=== PATIENT | female | born 1970 | race Caucasian/White ===

== ENCOUNTER → 2016-10-07 | Outpatient (CLI) | payer OTHER ==
[~2016-10-07] MED LIST: ARIP2TAB3 PO; ATOR10TA88 PO; BUPR-79 PO; BUPR100T8 PO; CLON0.5T3 PO; CLON2TAB3 PO; CLOP1TAB15 PO; CPXI SQ; DOCU1TAB6 PO; EFF/375 PO; ERGO1CAP35 PO; FRCT/ PO; GLC/500 PO; HYDC25 PO; HYDR-3126 PO; HYDR25TA5 PO; LEVO100T7 PO; LEVO50TA6 PO; LINA1CAP PO; LINA1CAP2 PO; LISI-461 PO; MECL1TAB42 PO; MELO15TA4 PO; MELO7.5T5 PO; METH500T37 PO; METO-217 PO; METO25TA3 PO; NAPR1TAB9 PO; ONDA4TAB46 PO; PANT40TA PO; POLY1POW2 PO; PROM25TA9 PO; QUET5TAB PO; RANI300T2 PO; ROSU20TA PO; SOLI10TA2 PO; VENL150C56 PO; VITAMIN B12 SC; VRPSR180 PO; VTMD PO
[2016-10-07 13:23] LABS: CHOLESTEROL/HDL RATIO 5.3; FERRITIN 5.9 ng/ml (8.0-388.0); THYROID STIMULATING HORMONE 1.96 uIu/ml (0.300-4.500)
[2016-10-07 13:33] LABS: BASO % 0.5 %; BASO ABS # 0.02 K/uL (0-0.2); COMPLETE YES; EOS % 5.1 %; HEMATOCRIT 36.2 % (37-47); LYMPH % 39.5 %; MEAN CELL VOLUME 87.7 fL (80-100); MEAN CORPUSCULAR HEMOGLOBIN 28.8 pg (25-34); MEAN CORPUSCULAR HGB CONC 32.9 g/dl (32-36); NEUT % 47.9 %; PLATELET COUNT 437 K/uL (130-400); RED BLOOD COUNT 4.13 M/uL (4.2-5.4)
== END | disposition home or self-care (01) ==
LOC: C.LABBFT 08:36
PROVIDERS: ATTEND Internal Medicine
DX: E03.9 Hypothyroidism, unspecified (principal); D50.9 Iron deficiency anemia, unspecified

== ENCOUNTER → 2016-10-28 | Outpatient (CLI) | payer OTHER ==
[~2016-10-28] MED LIST changes: -LEVO50TA6 PO
== END | disposition home or self-care (01) ==
LOC: C.LAB 11:48
PROVIDERS: ATTEND Psychiatry & Neurology Psychiatry
DX: F33.41 Major depressive disorder, recurrent, in partial remission (principal)

== ENCOUNTER → 2016-10-28 | Day surgery (SDC) | payer OTHER ==
[2016-10-20 08:01] VITALS: Ht 157.5 cm; Wt 103.2 kg
[~2016-10-28] VITALS: Ht 157.5 cm; Wt 103.2 kg
[~2016-10-28] MED LIST changes: +LIDOCAINE HCL 2% 2 ML VIAL (20MG/ML) ONE; +PROPOFOL IV EMULSION 10 MG/ML 20 ML VIAL IV ONE; +SODIUM CHLORIDE 0.9% 500ML 500 ML IV ONE
--- NOTE | 2016-10-28 12:35 | Endo History and Physical ---
History & Physical Date of Service: Oct 28, 2016. Chief Complaint: History of colon ulceration Referring Physician: Dr. Baires History of Present Illness 45 yo CF who presents for colonoscopy secondary to history of colon ulcer. Past Surgical History Hx Cardiac Surgery: No Hx Internal Defibrillator: No Hx Pacemaker: No Hx Abdominal Surgery: Yes (TUBAL LIGATION) Hx of Implantable Prosthesis: No Hx Post-Op Nausea and Vomiting: No Hx Cancer Surgery: No Hx Thoracic Surgery: No Hx Orthopedic: No Hx Urinary Tract Surgery: No Family History Colon CA Social History Smoking Status: Never Smoker Hx Substance Use: Yes (SEE MED REC) Hx Alcohol Use: No Allergies Coded Allergies: Vilazodone (Verified Adverse Reaction, Intermediate, HALLUCINATIONS, ) Current Medications Reported Home Medications Medications Dose Route/Sig Max Daily Dose Days Date Category Dose Instructions [Vitamin B12] 1 Dose SC MONTHLY 10/20/16 Reported Lipitor (Atorvastatin Calcium) 10 Mg Tab 10 Mg PO HS 10/20/16 Reported Glucophage (Metformin Hcl) 500 Mg Tab 500 Mg PO HS 10/20/16 Reported Levothyroxine Sodium 100 Mcg Tab 1 Tab PO HS 90 10/20/16 Reported Seroquel (Quetiapine Fumarate) 50 Mg Tab 3 Tab PO HS 10/20/16 Reported Polyethylene Glycol 3350 (Polyethylene Glycol 3350 (Bulk) Unknown Strength Pow 17 Gm PO BID 30 05/23/16 Reported Linzess (Linaclotide) 290 Mcg Cap 1 Tab PO QAM 05/23/16 Reported Wellbutrin Sr (Bupropion HCl) 150 Mg Ertab 150 Mg PO QAM 04/08/16 Reported Wellbutrin Sr (Bupropion HCl) 100 Mg Ertab 3 Tab PO QAM 04/08/16 Reported Effexor Extended Rel (Venlafaxine Hcl) 150 Mg Cap 150 Mg PO HS 04/08/16 Reported Effexor (Venlafaxine Hcl) 37.5 Mg Tab 37.5 Mg PO HS 04/08/16 Reported Vesicare (Solifenacin) 10 Mg Tab 10 Mg PO HS 04/08/16 Reported Protonix (Pantoprazole) 40 Mg Tab 1 Tab PO QAM 04/08/16 Reported Zofran (Ondansetron HCl) 4 Mg Tab 4 Mg PO Q8H PRN 04/08/16 Reported Vitamin D Cap (Ergocalciferol) 50,000 Interunit Cap 50,000 Inter.unit PO WK 04/08/16 Reported Aleve (Naproxen) 220 Mg Tab 220 Mg PO DIRECTED PRN 03/13/16 Reported Docusate Sodium 100 Mg Tab 3 Tab PO QAM 03/13/16 Reported Robaxin (Methocarbamol) 500 Mg Tab 500 Mg PO TID 03/13/16 Reported Zantac (Ranitidine HCl) 300 Mg Tab 300 Mg PO HS 08/27/15 Reported Toprol-Xl (Metoprolol Succinate) 25 Mg Tabcr 25 Mg PO HS 08/27/15 Reported Meclizine Hcl 25 Mg Tab 1 Tab PO TID PRN 30 08/27/15 Reported Copaxone (Glatiramer Acetate) 20 Mg/1 Ml Inj 1 Dose SQ QAM 08/27/15 Reported Mobic (Meloxicam) 7.5 Mg Tab 7.5 Mg PO BID 08/25/13 Reported TAKE WITH FOOD Klonopin (Clonazepam) 2 Mg Tab 2 Mg PO HS 08/25/13 Reported Fioricet (Acetaminophen/Butalbital/Caffeine) 1 Ea Tab 1-2 Tab PO BID PRN 08/25/13 Reported TAKE 1 OR 2 TABLETS BID PRN HEADACHE, NO MORE THAN 2 DAYS PER WEEK. Zestril (Lisinopril) 10 Mg Tab 10 Mg PO QAM 08/25/13 Reported Klonopin (Clonazepam) 0.5 Mg Tab 0.5 Mg PO TID PRN 08/12/11 Reported Hctz * (Hydrochlorothiazide) 25 Mg Tab 25 Mg PO QAM 08/12/11 Reported Vital Signs Weight (Kilograms): 103.18 Height (Feet): 5 Height (Inches): 2 Physical Exam General Appearance: WD/WN, no apparent distress Respiratory/Chest: Auscultation: breath sounds normal Cardiovascular: Heart Auscultation: RRR Abdomen: Bowel Sounds: normal Inspection & Palpation: soft, non-distended, no tenderness, guarding & rebound Assessment and Plan Assessment: 45 yo CF who presents for colonoscopy secondary to history of colon ulcer. Plan: Proceed with colonoscopy.
[2016-10-28 12:36] VITALS: TEMP 37.4
--- NOTE | 2016-10-28 13:19 | Discharge Instructions ---
Endoscopy Patient Instructions Date / Procedure(s) Performed Oct 28, 2016. Colonoscopy Allergy Information Coded Allergies: Vilazodone (Verified Adverse Reaction, Intermediate, HALLUCINATIONS, ) Discharge Date / Findings Oct 28, 2016. Poor bowel prep Medication Instructions Stopped Medication(s): Last dose Metformin 2/5 OK to resume all medications today as prescribed. Reported Home Medications Medications Dose Route/Sig Max Daily Dose Days Date Category Dose Instructions [Vitamin B12] 1 Dose SC MONTHLY 10/20/16 Reported Lipitor (Atorvastatin Calcium) 10 Mg Tab 10 Mg PO HS 10/20/16 Reported Glucophage (Metformin Hcl) 500 Mg Tab 500 Mg PO HS 10/20/16 Reported Levothyroxine Sodium 100 Mcg Tab 1 Tab PO HS 90 10/20/16 Reported Seroquel (Quetiapine Fumarate) 50 Mg Tab 3 Tab PO HS 10/20/16 Reported Polyethylene Glycol 3350 (Polyethylene Glycol 3350 (Bulk) Unknown Strength Pow 17 Gm PO BID 30 05/23/16 Reported Linzess (Linaclotide) 290 Mcg Cap 1 Tab PO QAM 05/23/16 Reported Wellbutrin Sr (Bupropion HCl) 150 Mg Ertab 150 Mg PO QAM 04/08/16 Reported Wellbutrin Sr (Bupropion HCl) 100 Mg Ertab 3 Tab PO QAM 04/08/16 Reported Effexor Extended Rel (Venlafaxine Hcl) 150 Mg Cap 150 Mg PO HS 04/08/16 Reported Effexor (Venlafaxine Hcl) 37.5 Mg Tab 37.5 Mg PO HS 04/08/16 Reported Vesicare (Solifenacin) 10 Mg Tab 10 Mg PO HS 04/08/16 Reported Protonix (Pantoprazole) 40 Mg Tab 1 Tab PO QAM 04/08/16 Reported Zofran (Ondansetron HCl) 4 Mg Tab 4 Mg PO Q8H PRN 04/08/16 Reported Vitamin D Cap (Ergocalciferol) 50,000 Interunit Cap 50,000 Inter.unit PO WK 04/08/16 Reported Aleve (Naproxen) 220 Mg Tab 220 Mg PO DIRECTED PRN 03/13/16 Reported Docusate Sodium 100 Mg Tab 3 Tab PO QAM 03/13/16 Reported Robaxin (Methocarbamol) 500 Mg Tab 500 Mg PO TID 03/13/16 Reported Zantac (Ranitidine HCl) 300 Mg Tab 300 Mg PO HS 08/27/15 Reported Toprol-Xl (Metoprolol Succinate) 25 Mg Tabcr 25 Mg PO HS 08/27/15 Reported Meclizine Hcl 25 Mg Tab 1 Tab PO TID PRN 30 08/27/15 Reported Copaxone (Glatiramer Acetate) 20 Mg/1 Ml Inj 1 Dose SQ QAM 08/27/15 Reported Mobic (Meloxicam) 7.5 Mg Tab 7.5 Mg PO BID 08/25/13 Reported TAKE WITH FOOD Klonopin (Clonazepam) 2 Mg Tab 2 Mg PO HS 08/25/13 Reported Fioricet (Acetaminophen/Butalbital/Caffeine) 1 Ea Tab 1-2 Tab PO BID PRN 08/25/13 Reported TAKE 1 OR 2 TABLETS BID PRN HEADACHE, NO MORE THAN 2 DAYS PER WEEK. Zestril (Lisinopril) 10 Mg Tab 10 Mg PO QAM 08/25/13 Reported Klonopin (Clonazepam) 0.5 Mg Tab 0.5 Mg PO TID PRN 08/12/11 Reported Hctz * (Hydrochlorothiazide) 25 Mg Tab 25 Mg PO QAM 08/12/11 Reported Provider Instructions Activity Restrictions - No exercising or heavy lifting for 24 hours. - Do not drink alcohol the day of the procedure. - Do not drive a car or operate machinery until the day after the procedure. - Do not make any important decisions or sign important papers in 24 hours after the procedure. Following Day: - Return to full activity which may include returning to work/school. Diet Start your diet with liquids and light foods (jello, soup, juice, toast). Then eat your usual diet if not nauseated. Treatment For Common After Affects For mild abdominal pain, bloating, or excessive gas: - Rest - Eat lightly - Lie on right side Follow-Up Information Follow-up with Dr.Dennis Baires as scheduled Anesthesia Information What You Should Know You have had a procedure that required some medicine to reduce anxiety and discomfort. This treatment is called moderate sedation. After receiving the treatment, you may be sleepy, but you will be able to breathe on your own. The effects of the treatment may last for several hours. Follow these instructions along with Activity/Diet recommendations noted above: * Do NOT do anything where dizziness or clumsiness would be dangerous. * Rest quietly at home today, then you can be up and about tomorrow. * Have a responsible person stay with you the rest of today. * You may have had an I.V. today. If so, you may take the dressing off later today. Recommendations Call your doctor if: * Trouble breathing * Continuous vomiting for more than 24 hours * Temperature above 101 degrees * Severe abdominal pain or bloating * Pain not relieved by pain medicine ordered * There is increased drainage or redness from any incision * A large amount of rectal bleeding greater than 2-3 tablespoons. (If you had a polyp/s removed or have hemorrhoids, a small amount of blood - from the rectum is to be expected.) * You have any unanswered questions or concerns. IN THE EVENT OF A SERIOUS EMERGENCY, GO TO THE NEAREST EMERGENCY ROOM Your discharge instructions were prepared by provider Rene Padgett. Patient Instructions Signature Page Lucas Diaz Patient (or Guardian) Signature/Date: I have read and understand the instructions given to me by my caregivers. Caregiver/RN/Doctor Signature/Date: The above-named patient and/or guardian has received patient instructions on this date. + Original Patient Signature Page (only) stays with chart. Please make copy for patient.
--- NOTE | 2016-10-28 13:24 | GI REPORT ---
Procedure Date: 10/28/2016 12:55 PM Procedure: Colonoscopy Indications: Personal history of ulcer of colon Medicines: Monitored Anesthesia Care Complications: No immediate complications. Estimated Blood Loss: Estimated blood loss: none. Procedure: Pre-Anesthesia Assessment: - Prior to the procedure, a History and Physical was performed, and patient medications and allergies were reviewed. The patient's tolerance of previous anesthesia was also reviewed. The risks and benefits of the procedure and the sedation options and risks were discussed with the patient. All questions were answered, and informed consent was obtained. Prior Anticoagulants: The patient has taken no previous anticoagulant or antiplatelet agents. ASA Grade Assessment: III - A patient with severe systemic disease. After reviewing the risks and benefits, the patient was deemed in satisfactory condition to undergo the procedure. After I obtained informed consent, the scope was passed under direct vision. Throughout the procedure, the patient's blood pressure, pulse, and oxygen saturations were monitored continuously. The On-site loaner was introduced through the anus with the intention of advancing to the ileum. The scope was advanced to the ascending colon before the procedure was aborted. Medications were given. The colonoscopy was performed with moderate difficulty due to poor bowel prep with stool present. Successful completion of the procedure was aided by applying abdominal pressure and lavage. The patient tolerated the procedure well. The quality of the bowel preparation was poor. No anatomical landmarks were photographed. Findings: A large amount of semi-solid solid stool was found in the entire colon, precluding visualization. Lavage of the area was performed using a large amount of normal saline, resulting in incomplete clearance with continued poor visualization. Impression: - Preparation of the colon was poor. - Stool in the entire examined colon. - No specimens collected. Recommendation: - Resume previous diet. - Continue present medications. - Repeat colonoscopy in 3 months because the bowel preparation was poor. - Return to primary care physician as previously scheduled. Rene Padgett DO 10/28/2016 1:23:46 PM This report has been signed electronically. Note Initiated On: 10/28/2016 12:55 PM I attest to the content of the Intraoperative Record and orders documented therein, exceptions below
[2016-10-28 13:41] VITALS: PULSE 90
[2016-10-28 13:48] VITALS: BP 143/74; O2SAT 100
--- NOTE | 2016-10-28 14:19 | Anesthesiology Progress Note ---
Anesthesia Post Op Note Date & Time Oct 28, 2016 at 14:19 Vital Signs Pain Intensity: 0 Vital Signs Past 12 Hours Date Time Temp Pulse Resp B/P Pulse Ox O2 Delivery O2 Flow Rate FiO2 10/28/16 13:48 18 143/74 100 Room Air 10/28/16 13:41 90 18 140/73 100 Room Air 10/28/16 13:30 92 18 139/76 100 Room Air 10/28/16 13:20 93 20 119/69 100 Room Air 10/28/16 12:36 37.4 97 20 137/86 97 Room Air Notes Mental Status: alert / awake / arousable, participated in evaluation Pt Amnestic to Procedure: Yes Nausea / Vomiting: adequately controlled Pain: adequately controlled Airway Patency, RR, SpO2: stable & adequate BP & HR: stable & adequate Hydration State: stable & adequate Anesthetic Complications: no major complications apparent
== END | disposition home or self-care (01) ==
LOC: C.GI 11:45
PROVIDERS: ATTEND Internal Medicine
DX: Z09 Encounter for follow-up examination after completed treatment for conditions other than malignant neoplasm (principal); Z87.11 Personal history of peptic ulcer disease; Z53.09 Procedure and treatment not carried out because of other contraindication; Z80.0 Family history of malignant neoplasm of digestive organs; Z98.51 Tubal ligation status; Z88.8 Allergy status to other drugs, medicaments and biological substances

== ENCOUNTER 2016-11-04 14:31 | Emergency (ER) | payer OTHER ==
[~2016-11-04] VITALS: Ht 157.5 cm; Wt 37.1 kg
[~2016-11-04 14:31] MED LIST changes: -ARIP2TAB3 PO; -CLOP1TAB15 PO; -HYDR-3126 PO; -HYDR25TA5 PO; -LIDOCAINE HCL 2% 2 ML VIAL (20MG/ML) ONE; -LINA1CAP PO; -MELO15TA4 PO; -METO-217 PO; -PROM25TA9 PO; -PROPOFOL IV EMULSION 10 MG/ML 20 ML VIAL IV ONE; -ROSU20TA PO; -SODIUM CHLORIDE 0.9% 500ML 500 ML IV ONE; -VRPSR180 PO; -VTMD PO
[2016-11-04 14:37] VITALS: Ht 157.5 cm; Wt 37.1 kg
[2016-11-04 15:06] LABS: BASO % 0.4 %; BASO ABS # 0.03 K/uL (0-0.2); COMPLETE YES; EOS % 3.8 %; HEMATOCRIT 35.5 % (37-47); IG% 0.1 %; LYMPH % 24.7 %; LYMPH ABS # 1.71 K/uL (1.2-3.4); MEAN CELL VOLUME 86.6 fL (80-100); MEAN CORPUSCULAR HEMOGLOBIN 28.3 pg (25-34); MEAN CORPUSCULAR HGB CONC 32.7 g/dl (32-36); MONO % 7.1 %; NEUT % 63.9 %; PLATELET COUNT 397 K/uL (130-400); WHITE BLOOD COUNT 6.93 K/uL (4.8-10.8)
--- NOTE | 2016-11-04 15:06 | EMERGENCY ROOM VISIT NOTE ---
History Report prepared by Monica: Candice Hurd Under the Supervision of: Dr. Yandel Olivo D.O. First contact with patient: 14:42 Chief Complaint: STROKE SYMPTOMS Stated Complaint: ABDOMINAL PAIN History of Present Illness The patient is a 45 year old female who presents to the Emergency Room with complaints of persistent weakness that began around 1318 today. Per nursing staff the patient notice a left facial droop and left sided weakness. The patient notes that she has a history of MS and follows with Dr. Sagastume for her symptoms. She states that she has had this happen in the past where she has the stroke symptoms and has had a distended abdomen. The patient states that she has had CTs of her chest, abdomen and head, and MRIs. She additionally states that she has had several blood tests ran, along with a colonoscopy and endoscopy. The patient states that she had an echocardiogram, and a carotid artery Doppler. The patient states that her symptoms today feel similar to her previous events. Today she notes nausea, abdominal pain and distension along with constipation. She states that she takes Colace three times per day. The patient states that her ears become hot intermittently. She denies any headaches, neck pain, or vomiting. Source of History: patient Onset: 1317 today Position: other (global) Quality: other (weakness) Timing: other (persistent) Associated Symptoms: + abdominal pain, + nausea, No headache, No neck pain, No vomiting Note: Associated Symptoms: left facial droop, left sided weakness, abdominal distension, constipation Review of Systems See HPI for pertinent positives & negatives. A total of 10 systems reviewed and were otherwise negative. Past Medical & Surgical Medical Problems: (1) Depression (2) HTN (hypertension) (3) Large bowel obstruction (4) Left sided numbness (5) Multiple sclerosis (6) Obese (7) Vitamin D deficiency Family History Cancer Heart disease Hypertension Psoriasis FATHER Social History Smoking Status: Never Smoker Alcohol Use: none Drug Use: none Marital Status: Housing Status: lives with family Occupation Status: disabled Current/Historical Medications Scheduled Atorvastatin (Lipitor), 10 MG PO HS Bupropion (Wellbutrin Sr), 300 TAB PO QAM Bupropion (Wellbutrin Sr), 150 MG PO QAM Clonazepam (Klonopin), 2 MG PO HS Docusate Sodium (Docusate Sodium), 3 TAB PO QAM Ergocalciferol (Vitamin D), 50,000 UNITS PO WK Glatiramer Acetate (Copaxone), 1 DOSE SQ QAM Hydrochlorothiazide (Hydrochlorothiazide), 25 MG PO QAM Levothyroxine Sodium (Levothyroxine Sodium), 1 TAB PO HS Linaclotide (Linzess), 290 MCG PO QAM Lisinopril (Zestril), 10 MG PO QAM Meloxicam (Mobic), 7.5 MG PO BID Metformin Hcl (Glucophage), 500 MG PO HS Methocarbamol (Robaxin), 500 MG PO TID Metoprolol Succ (Toprol Xl) (Toprol-Xl), 25 MG PO HS Pantoprazole (Protonix), 1 TAB PO QAM Polyethylene Glycol 3350 (Bulk (Polyethylene Glycol 3350), 17 GM PO BID Quetiapine Fumarate (Seroquel), 150 MG PO HS Ranitidine (Zantac), 300 MG PO HS Solifenacin (Vesicare), 10 MG PO HS Venlafaxine Hcl (Effexor), 37.5 MG PO HS Venlafaxine Hcl (Effexor Extended Rel), 150 MG PO HS [Vitamin B12], 1 DOSE SC MONTHLY Scheduled PRN Acetamin/Butalbital/Caffeine (Fioricet), 1-2 TAB PO BID PRN for Headache Clonazepam (Klonopin), 0.5 MG PO TID PRN for Anxiety Meclizine Hcl (Meclizine Hcl), 1 TAB PO TID PRN for VERTIGO Naproxen (Aleve), 220 MG PO DIRECTED PRN for Pain Ondansetron Hcl (Zofran), 4 MG PO Q8H PRN for Nausea Allergies Coded Allergies: Vilazodone (Verified Adverse Reaction, Intermediate, HALLUCINATIONS, ) Physical Exam Vital Signs Date Time Temp Pulse Resp B/P Pulse Ox O2 Delivery O2 Flow Rate FiO2 11/04/16 18:21 106 18 141/86 97 11/04/16 16:33 103 141/86 98 Room Air 118 139/104 124 137/124 11/04/16 15:38 98 Room Air 11/04/16 14:40 105 11/04/16 14:37 37.1 107 16 137/91 98 Room Air Physical Exam GENERAL: Patient is awake, alert, and in no acute distress. Patient is resting comfortably and showing no signs of anxiety EYES: The conjunctivae are clear. The pupils are round and reactive. EARS, NOSE, MOUTH AND THROAT: The nose is without any evidence of any deformity. Mucous membranes are moist tongue is midline NECK: The neck is nontender and supple. RESPIRATORY: Normal respiratory effort is noted there is no evidence of wheezing rhonchi or rales CARDIOVASCULAR: Regular rate and rhythm noted there no murmurs rubs or gallops normal S1 normal S2 GASTROINTESTINAL: The abdomen is soft. Bowel sounds are present in all quadrants. Abdomen is nontender MUSCULOSKELETAL/EXTREMITIES: There is no evidence of gross deformity full range of motion is noted in the hips and shoulders SKIN: There is no obvious evidence of any rash. There are no petechiae, pallor or cyanosis noted. NEUROLOGIC: Patient is awake alert and oriented x3 strength is symmetric patellar reflexes are 2+ bilaterally Medical Decision & Procedures ER Provider Diagnostic Interpretation: Radiology results as stated below per my review and radiologist interpretation: KUB CLINICAL HISTORY: Constipation. COMPARISON STUDY: CT of the abdomen and pelvis May 23, 2016. FINDINGS: The bowel gas pattern is normal. Pelvic calcifications were shown to represent phleboliths on prior CT. No urinary calculi are identified by radiography. The amount of stool within the colon and rectum is within normal limits. IMPRESSION: 1. No evidence of a bowel obstruction. 2. Unremarkable amount of stool within the colon and rectum. Electronically signed by: Jamie White M.D. 11/04/2016 4:01 PM Dictated Date/Time: 11/04/2016 3:[address] CT DOSE: 720.95 mGycm HISTORY: Mental status change EVALUATE ALTERED MENTAL STATUS/WEAKNESS TECHNIQUE: Multiaxial CT images of the head were performed without the use of intravenous contrast. Comparison: 03/18/2016 Findings: The paranasal sinuses and mastoid air cells are clear. The calvarium and skull base are intact. The ventricles and sulci are within normal limits. There is no mass, hematoma, midline shift, or acute infarct. Impression: No acute intracranial abnormality. Electronically signed by: Rahul Harrison M.D. 11/04/2016 3:12 PM Dictated Date/Time: 11/04/2016 3:11 PM CHEST ONE VIEW PORTABLE CLINICAL HISTORY: Altered mental status. Weakness. COMPARISON STUDY: Chest radiograph May 13, 2016. FINDINGS: Lung volumes are normal. Lungs are clear. There is no pneumothorax or pleural effusion. Cardiac size is normal. Mediastinal contours are normal. There is no evidence of pulmonary edema. IMPRESSION: No acute cardiopulmonary findings. Electronically signed by: Jamie White M.D. 11/04/2016 3:59 PM Dictated Date/Time: 11/04/2016 3:59 PM Laboratory Results 11/04/16 14:48 Red Blood Count 4.10, Mean Corpuscular Volume 86.6, Mean Corpuscular Hemoglobin 28.3, Mean Corpuscular Hemoglobin Concent 32.7, Mean Platelet Volume 9.0, Neutrophils (%) (Auto) 63.9, Lymphocytes (%) (Auto) 24.7, Monocytes (%) (Auto) 7.1, Eosinophils (%) (Auto) 3.8, Basophils (%) (Auto) 0.4, Neutrophils # (Auto) 4.43, Lymphocytes # (Auto) 1.71, Monocytes # (Auto) 0.49, Eosinophils # (Auto) 0.26, Basophils # (Auto) 0.03 11/04/16 14:48 Test 11/04/16 14:48 11/04/16 15:47 11/04/16 16:06 White Blood Count 6.93 K/uL (4.8-10.8) Red Blood Count 4.10 M/uL (4.2-5.4) Hemoglobin 11.6 g/dL (12.0-16.0) Hematocrit 35.5 % (37-47) Mean Corpuscular Volume 86.6 fL (80-100) Mean Corpuscular Hemoglobin 28.3 pg (25-34) Mean Corpuscular Hemoglobin Concent 32.7 g/dl (32-36) Platelet Count 397 K/uL (130-400) Mean Platelet Volume 9.0 fL (7.4-10.4) Neutrophils (%) (Auto) 63.9 % Lymphocytes (%) (Auto) 24.7 % Monocytes (%) (Auto) 7.1 % Eosinophils (%) (Auto) 3.8 % Basophils (%) (Auto) 0.4 % Neutrophils # (Auto) 4.43 K/uL (1.4-6.5) Lymphocytes # (Auto) 1.71 K/uL (1.2-3.4) Monocytes # (Auto) 0.49 K/uL (0.11-0.59) Eosinophils # (Auto) 0.26 K/uL (0-0.5) Basophils # (Auto) 0.03 K/uL (0-0.2) RDW Standard Deviation 44.4 fL (36.4-46.3) RDW Coefficient of Variation 14.0 % (11.5-14.5) Immature Granulocyte % (Auto) 0.1 % Immature Granulocyte # (Auto) 0.01 K/uL (0.00-0.02) Anion Gap 14.0 mmol/L (3-11) Est Creatinine Clear Calc Drug Dose 46.7 ml/min Estimated GFR () 90.1 Estimated GFR (Non- 77.8 BUN/Creatinine Ratio 13.6 (10-20) Calcium Level 8.4 mg/dl (8.5-10.1) Phosphorus Level 3.3 mg/dl (2.5-4.9) Magnesium Level 2.2 mg/dl (1.8-2.4) Total Bilirubin 0.2 mg/dl (0.2-1) Direct Bilirubin mg/dl (0-0.2) Aspartate Amino Transf (AST/SGOT) 25 U/L (15-37) Alanine Aminotransferase (ALT/SGPT) 22 U/L (12-78) Alkaline Phosphatase 74 U/L (45-117) Total Creatine Kinase 121 U/L (26-192) Creatine Kinase MB 0.6 ng/ml (0.5-3.6) Creatine Kinase MB Ratio 0.5 (0-3.0) Troponin I < 0.015 ng/ml (0-0.045) Total Protein 7.1 gm/dl (6.4-8.2) Albumin 3.6 gm/dl (3.4-5.0) Thyroid Stimulating Hormone (TSH) 0.986 uIu/ml (0.300-4.500) Chemistry Specimen Hemolysis Prothrombin Time 10.2 SECONDS (9.0-12.0) Prothromb Time International Ratio 1.0 (0.9-1.1) Activated Partial Thromboplast Time 23.3 SECONDS (21.0-31.0) Partial Thromboplastin Ratio 0.9 Urine Color YELLOW Urine Appearance CLEAR (CLEAR) Urine pH 5.0 (4.5-7.5) Urine Specific [place] 1.009 (1.000-1.030) Urine Protein NEG (NEG) Urine Glucose (UA) NEG (NEG) Urine Ketones NEG (NEG) Urine Occult Blood 2+ (NEG) Urine Nitrite NEG (NEG) Urine Bilirubin NEG (NEG) Urine Urobilinogen NEG (NEG) Urine Leukocyte Esterase TRACE (NEG) Urine WBC (Auto) 1-5 /hpf (0-5) Urine RBC (Auto) 5-10 /hpf (0-4) Urine Hyaline Casts (Auto) 0 /lpf (0-5) Urine Epithelial Cells (Auto) 5-10 /lpf (0-5) Urine Bacteria (Auto) 1+ (NEG) Urine Opiates Screen NEG (NEG) Urine Methadone, Qualitative NEG (NEG) Urine Barbiturates POS (NEG) Urine Phencyclidine (PCP) Level NEG (NEG) Ur Amphetamine/Methamphetamine NEG (NEG) MDMA (Ecstasy) Screen POS (NEG) Urine Benzodiazepines Screen NEG (NEG) Urine Cocaine Metabolite NEG (NEG) Urine Marijuana (THC) NEG (NEG) Laboratory results per my review. ECG Indication: weakness Rate (beats per minute): 101 Rhythm: sinus tachycardia Findings: no ectopy, other (No acute ST segment abnormalities) Comparison ECG Date: 03/19/16 Change: no significant change ED Course 1442: The patient was evaluated in room B9. A complete history and physical examination were performed. 1624: I discussed the patients case with Dr. Sagastume, Neurology. He suggested that the patient has an MRI of her head. Medical Decision Differential diagnosis: Etiologies such as metabolic, infection, hypo/hyperglycemia, electrolyte abnormalities, cardiac sources, intracerebral event, toxicologic, neurologic, as well as others were entertained. Nursing notes reviewed. Additional history is obtained from the patient's family members. The patient is a 45-year-old female who has a history of multiple sclerosis who presented to the emergency department with a strokelike symptom. The patient had a left facial droop with 4 head sparing that was noted by family members prior to arrival. The patient had pictures on her phone and had a definite facial droop which was noted. The patient's symptoms were transient and started to resolve while she was in the emergency department. The patient's physical exam did not reveal any acute abnormality when she arrived in the emergency department. She had no focal neurologic deficits. She had no headache. The patient has had similar symptoms in the past according to her. She has had a stroke workup in the past and this was felt to be secondary to the patient's MS. The patient is also had multiple GI problems in the past. She's had upper as well as lower endoscopies with no answer for her condition other than possible ischemic colitis at times. The patient had a CT the emergency department which did not show any acute abnormalities. I discussed her laboratory radiographic studies with her. I also discussed her case with her primary neurologist. He is recommending an MRI to be sure that this is not a stroke syndrome. The MRI was obtained and did not show any acute change from previous. The patient also has been complaining of abdominal distention issues. She did not appear to be constipated on and radiographic studies although she did state she had some minor constipation recently. The patient did not have a physical exam consistent with an acute surgical abdomen. She was wondering whether or not this could represent some degree of GI involvement or autonomic dysfunction because of her MS. That certainly could be the case. Her primary neurologist recommended starting on steroids as an MS flare but the patient refused started on steroids at this time. She states that she definitely does not want IV steroids because of the possibility of ischemic colitis. She does have a Medrol Dosepak at home and states it if her symptoms started to return or worsen she would start on the Medrol Dosepak as soon as possible. Otherwise she was encouraged to rest and avoid any strenuous activity. She was encouraged to continue all medications as prescribed. She was also encouraged to follow-up with her neurologist as soon as possible for further evaluation or return to the emergency apartment immediately if symptoms change worsen or the need arises. She was given TIA discharge instructions although I'm still not convinced that this represents an acute ischemic event but the discharge instructions with help because they would explain what conditions I would expect her to return to the emergency department for. Consults Time Called: 1620 Consulting Physician: Dr. Sagastume, Neurology Returned Call: [phone] I discussed the patients case with Dr. Sagastume, Neurology. He suggested that the patient has an MRI of her head. Impression Primary Impression: TIA (transient ischemic attack) Additional Impressions: Weakness on left side of face Multiple sclerosis Scribe Attestation The scribe's documentation has been prepared under my direction and personally reviewed by me in its entirety. I confirm that the note above accurately reflects all work, treatment, procedures, and medical decision making performed by me. Departure Information Referrals Lucio Baires M.D. (PCP) Patient Instructions My [facility] Problem Qualifiers Primary Impression: TIA (transient ischemic attack) Transient cerebral ischemia type: unspecified Qualified Codes: G45.9 - Transient cerebral ischemic attack, unspecified
--- NOTE | 2016-11-04 15:13 | DIAGNOSTIC IMAGING REPORT ---
HEAD CT NONCONTRAST CT DOSE: 720.95 mGycm HISTORY: Mental status change EVALUATE ALTERED MENTAL STATUS/WEAKNESS TECHNIQUE: Multiaxial CT images of the head were performed without the use of intravenous contrast. Comparison: 03/18/2016 Findings: The paranasal sinuses and mastoid air cells are clear. The calvarium and skull base are intact. The ventricles and sulci are within normal limits. There is no mass, hematoma, midline shift, or acute infarct. Impression: No acute intracranial abnormality. Electronically signed by: Rahul Harrison M.D. 11/04/2016 3:12 PM Dictated Date/Time: 11/04/2016 3:11 PM
[2016-11-04] MEDS ORDERED: HYDR25TA5 PO (15:35)
[2016-11-04] MEDS ORDERED: VTMD PO (15:35)
[2016-11-04 15:38] VITALS: O2SAT 98
[2016-11-04 15:53] LABS: ALKALINE PHOSPHATASE 74 U/L (45-117); ALT/SGPT 22 U/L (12-78); AST/SGOT 25 U/L (15-37); BLOOD UREA NITROGEN 12 mg/dl (7-18); BUN/CREATININE RATIO 13.6 (10-20); CALCIUM 8.4 mg/dl (8.5-10.1); CARBON DIOXIDE 23 mmol/L (21-32); CHLORIDE 102 mmol/L (98-107); CKMB/CK RATIO 0.5 (0-3.0); GLUCOSE 92 mg/dl (70-99); MAGNESIUM 2.2 mg/dl (1.8-2.4); PHOSPHORUS 3.3 mg/dl (2.5-4.9); POTASSIUM 3.4 mmol/L (3.5-5.1); SODIUM 139 mmol/L (136-145); THYROID STIMULATING HORMONE 0.986 uIu/ml (0.300-4.500)
--- NOTE | 2016-11-04 16:00 | DIAGNOSTIC IMAGING REPORT ---
CHEST ONE VIEW PORTABLE CLINICAL HISTORY: Altered mental status. Weakness. COMPARISON STUDY: Chest radiograph May 13, 2016. FINDINGS: Lung volumes are normal. Lungs are clear. There is no pneumothorax or pleural effusion. Cardiac size is normal. Mediastinal contours are normal. There is no evidence of pulmonary edema. IMPRESSION: No acute cardiopulmonary findings. Electronically signed by: Jamie White M.D. 11/04/2016 3:59 PM Dictated Date/Time: 11/04/2016 3:59 PM
--- NOTE | 2016-11-04 16:02 | DIAGNOSTIC IMAGING REPORT ---
KUB CLINICAL HISTORY: Constipation. COMPARISON STUDY: CT of the abdomen and pelvis May 23, 2016. FINDINGS: The bowel gas pattern is normal. Pelvic calcifications were shown to represent phleboliths on prior CT. No urinary calculi are identified by radiography. The amount of stool within the colon and rectum is within normal limits. IMPRESSION: 1. No evidence of a bowel obstruction. 2. Unremarkable amount of stool within the colon and rectum. Electronically signed by: Jamie White M.D. 11/04/2016 4:01 PM Dictated Date/Time: 11/04/2016 3:59 PM
[2016-11-04 16:18] LABS: PARTIAL THROMBOPLASTIN RATIO 0.9; PROTHROMBIN TIME (PATIENT) 10.2 SECONDS (9.0-12.0)
[2016-11-04 17:04] LABS: URINE APPEARANCE CLEAR (CLEAR); URINE BILIRUBIN NEG (NEG); URINE COLOR YELLOW; URINE NITRITE NEG (NEG); URINE SPECIFIC GRAVITY 1.009 (1.000-1.030); UROBILINOGEN NEG (NEG)
[2016-11-04 17:05] LABS: MANUAL MICROSCOPIC REQUIRED? NO; REVIEW REQ? NO
[2016-11-04 17:22] LABS: BENZODIAZEPINE, URINE NEG (NEG); COCAINE,URINE NEG (NEG); PHENCYCLIDINE, URINE NEG (NEG)
--- NOTE | 2016-11-04 18:23 | DIAGNOSTIC IMAGING REPORT ---
MRI OF THE BRAIN WITHOUT CONTRAST CLINICAL HISTORY: Left facial droop and left upper extremity weakness, history of multiple sclerosis. COMPARISON STUDY: MRI of the brain July 03, [address] performed earlier today. TECHNIQUE: Utilizing a 1.5 Gaye magnet and dedicated coil, multiplanar, multiecho imaging of the brain was performed without IV contrast. Thin cut FLAIR imaging was performed as part of the multiple sclerosis protocol. FINDINGS: There are no areas of restricted diffusion. No acute intracranial hemorrhage, midline shift or mass effect is present. Ventricular system is stable. Basilar cisterns are patent. There are no extra axial collections. Flow-voids for the major intracranial vessels are present. No intracranial masses identified on this unenhanced exam. Ill-defined periventricular white matter T2 hyperintensities are similar to exam of July 03, 2016. No new areas of signal abnormality are present. Active demyelination is difficult to assess for on this unenhanced exam. There is fluid within left mastoid air cells which is similar to prior exam. A mucous retention cyst within left mastoid sinus is present. IMPRESSION: 1. No acute intracranial findings. 2. No significant change in nonspecific ill-defined periventricular white matter T2 hyperintensity since MRI of July 03, 2016. No new areas of signal abnormality identified. Unchanged appearance of the brain. Electronically signed by: Jamie White M.D. 11/04/2016 6:21 PM Dictated Date/Time: 11/04/2016 6:07 PM
[2016-11-04 18:53] VITALS: BP 133/79; PULSE 109; TEMP 37.1; O2SAT 97
[2017-01-27] MEDS ORDERED: METO-217 PO (09:12)
[2017-01-27] MEDS ORDERED: CLON0.5T3 PO (09:12)
[2017-01-27] MEDS ORDERED: ROSU20TA PO (09:12)
[2017-01-27] MEDS ORDERED: MELO15TA4 PO (09:12)
[2017-01-27] MEDS ORDERED: LINA1CAP PO (09:12)
[2017-01-27] MEDS ORDERED: VRPSR180 PO (09:13)
[2017-01-27] MEDS ORDERED: CLOP1TAB15 PO (09:15)
[2017-01-27] MEDS ORDERED: PROM25TA9 PO (09:15)
[2017-01-27] MEDS ORDERED: HYDR-3126 PO (09:15)
[2017-01-27] MEDS ORDERED: ARIP2TAB3 PO (09:15)
== END 2016-11-04 18:55 | disposition home or self-care (01) ==
LOC: EDBD 14:31 → C.EDB 14:32
DX: G45.9 Transient cerebral ischemic attack, unspecified (principal); R29.810 Facial weakness; G35 Multiple sclerosis; R00.1 Bradycardia, unspecified; I10 Essential (primary) hypertension; F32.9 Major depressive disorder, single episode, unspecified; K56.60 Unspecified intestinal obstruction; Z79.84 Long term (current) use of oral hypoglycemic drugs; Z79.899 Other long term (current) drug therapy; Z88.8 Allergy status to other drugs, medicaments and biological substances; Z80.9 Family history of malignant neoplasm, unspecified; Z82.49 Family history of ischemic heart disease and other diseases of the circulatory system

== ENCOUNTER → 2017-02-03 | Outpatient (CLI) | payer OTHER ==
[~2017-02-03] MED LIST changes: +ARIP2TAB3 PO; +ATOR10TA82 PO; -ATOR10TA88 PO; +CLOP1TAB15 PO; -ERGO1CAP35 PO; -GLC/500 PO; -HYDC25 PO; +HYDR-3126 PO; +HYDR25TA5 PO; +LINA1CAP PO; -LINA1CAP2 PO; +MELO15TA4 PO; -MELO7.5T5 PO; +METO-217 PO; -METO25TA3 PO; -POLY1POW2 PO; +PROM25TA9 PO; -QUET5TAB PO; +ROSU20TA PO; +VRPSR180 PO; +VTMD PO
[2017-02-03 18:04] LABS: THYROID STIMULATING HORMONE 1.11 uIu/ml (0.300-4.500)
== END | disposition home or self-care (01) ==
LOC: C.LABBFT 12:18
PROVIDERS: ATTEND Internal Medicine
DX: E55.9 Vitamin D deficiency, unspecified (principal); E53.8 Deficiency of other specified B group vitamins; E03.9 Hypothyroidism, unspecified

== ENCOUNTER → 2017-03-04 | Outpatient (CLI) | payer OTHER | END | disposition home or self-care (01) | LOC: C.LABBFT 10:39 | PROVIDERS: ATTEND Psychiatry & Neurology Neurology | DX: E53.8 Deficiency of other specified B group vitamins (principal); E55.9 Vitamin D deficiency, unspecified; E78.00 Pure hypercholesterolemia, unspecified ==

== ENCOUNTER → 2017-04-27 | Outpatient (CLI) | payer OTHER ==
[~2017-04-27] MED LIST changes: -ATOR10TA82 PO; +ATOR10TA88 PO
[2017-04-27 12:46] LABS: CHOLESTEROL/HDL RATIO 1.8
== END | disposition home or self-care (01) ==
LOC: C.LABBFT 08:33
PROVIDERS: ATTEND Internal Medicine Interventional Cardiology
DX: E78.00 Pure hypercholesterolemia, unspecified (principal); G35 Multiple sclerosis; E55.9 Vitamin D deficiency, unspecified

== ENCOUNTER → 2017-06-15 | Outpatient (CLI) | payer OTHER ==
--- NOTE | 2017-06-16 07:54 | MAMMOGRAPHY REPORT ---
BILATERAL DIGITAL SCREENING MAMMOGRAM TOMOSYNTHESIS WITH CAD: 06/15/2017 CLINICAL HISTORY: Routine screening. Patient has no complaints. TECHNIQUE: Breast tomosynthesis in addition to standard 2D mammography was performed. Current study was also evaluated with a Computer Aided Detection (CAD) system. COMPARISON: Comparison is made to exams dated: 04/11/2015 mammogram, 04/05/2015 mammogram, 01/10/2014 m ammogram, 12/31/2011 mammogram - [facility], and 01/28/2007. BREAST COMPOSITION: There are scattered areas of fibroglandular density in both breasts. There is a n involutional changes comparing to prior mammograms. FINDINGS: There are benign intramammary lymph nodes in each upper outer quadrant. Scattered stable b enign-appearing microcalcifications. No suspicious mass, architectural distortion or cluster of micr ocalcifications is seen. IMPRESSION: ACR BI-RADS CATEGORY 1: NEGATIVE There is no mammographic evidence of malignancy. A 1 year screening mammogram is recommended. The pa tient will receive written notification of the results. Approximately 10% of breast cancers are not detected with mammography. A negative mammographic report should not delay biopsy if a clinically suggestive mass is present. Lynn Collins M.D. ay/:06/15/2017 21:20:48 Stem Crusher: Robyn DIXON)(M), [facility] letter sent: Normal 1/2 BI-RADS Code: ACR BI-RADS Category 1: Negative
== END | disposition home or self-care (01) ==
LOC: C.MAMM 11:16
PROVIDERS: ATTEND Obstetrics & Gynecology
DX: Z12.31 Encounter for screening mammogram for malignant neoplasm of breast (principal)

== ENCOUNTER → 2017-09-07 | Outpatient (CLI) | payer OTHER ==
[~2017-09-07] MED LIST changes: +ATOR10TA82 PO; -ATOR10TA88 PO
[2017-09-07 12:41] LABS: ALT/SGPT 24 U/L (12-78); BLOOD UREA NITROGEN 13 mg/dl (7-18); CALCIUM 8.5 mg/dl (8.5-10.1); CARBON DIOXIDE 28 mmol/L (21-32); CHLORIDE 101 mmol/L (98-107); CREATININE 0.96 mg/dl (0.60-1.20); GLUCOSE 92 mg/dl (70-99); POTASSIUM 3.4 mmol/L (3.5-5.1); SODIUM 137 mmol/L (136-145)
[2017-09-07 12:51] LABS: ALB/GLOB RATIO 1.2 (0.9-2); ALKALINE PHOSPHATASE 75 U/L (45-117); AST/SGOT 15 U/L (15-37)
== END | disposition home or self-care (01) ==
LOC: C.LABBFT 08:50
PROVIDERS: ATTEND Internal Medicine
DX: E03.9 Hypothyroidism, unspecified (principal); I10 Essential (primary) hypertension

== ENCOUNTER → 2017-09-13 | Outpatient (CLI) | payer OTHER ==
[2017-09-13 14:00] LABS: URINE APPEARANCE CLEAR (CLEAR); URINE BILIRUBIN NEG (NEG); URINE COLOR YELLOW; URINE EPITHELIAL CELL AUTO 0-5 /lpf (0-5); URINE NITRITE NEG (NEG); URINE PH 5.5 (4.5-7.5); URINE SPECIFIC GRAVITY 1.011 (1.000-1.030); UROBILINOGEN NEG (NEG); ZZUR CULT IF INDIC CLEAN CATCH NO
[2017-09-13 14:02] LABS: MANUAL MICROSCOPIC REQUIRED? NO; REVIEW REQ? NO
== END | disposition home or self-care (01) ==
LOC: C.LAB 13:28
PROVIDERS: ATTEND Internal Medicine
DX: R39.9 Unspecified symptoms and signs involving the genitourinary system (principal)

== ENCOUNTER → 2017-10-14 | Outpatient (CLI) | payer OTHER ==
--- NOTE | 2017-10-14 13:56 | DIAGNOSTIC IMAGING REPORT ---
CHEST 2 VIEWS ROUTINE CLINICAL HISTORY: R05 Productive [id number] cough COMPARISON STUDY: 11/04/2016 FINDINGS: The bones soft tissues and hemidiaphragms are normal. The cardiomediastinal silhouette is normal. The lungs are clear. The pulmonary vasculature is normal. IMPRESSION: Negative chest. The above report was generated using voice recognition software. It may contain grammatical, syntax or spelling errors. Electronically signed by: Rahul Harrison M.D. 10/14/2017 1:54 PM Dictated Date/Time: 10/14/2017 1:54 PM
== END | disposition home or self-care (01) ==
LOC: C.RAD 13:31
PROVIDERS: ATTEND Nurse Practitioner
DX: R05 Cough (principal)

== ENCOUNTER → 2017-11-02 | Outpatient (CLI) | payer OTHER ==
[~2017-11-02] MED LIST changes: +MELO-84 PO; -MELO15TA4 PO
== END | disposition home or self-care (01) ==
LOC: C.LAB 13:07
PROVIDERS: ATTEND Internal Medicine
DX: E55.9 Vitamin D deficiency, unspecified (principal); E53.8 Deficiency of other specified B group vitamins

== ENCOUNTER 2018-02-12 08:23 | Day surgery (SDC) | payer OTHER ==
[2018-02-04 10:00] VITALS: BMI 40.0
[~2018-02-12] VITALS: Ht 157.5 cm; Wt 100.0 kg
[~2018-02-12 08:23] MED LIST changes: -ARIP2TAB3 PO; -ATOR10TA82 PO; +ATROPINE SULFATE 0.1 MG/ML 5ML SYR IV PRN; +BUSP1TAB46 PO; -CLON0.5T3 PO; -CLON2TAB3 PO; +CYAN100020 PO; +ERGO500037 PO; +ESZO1TAB16 PO; +EpHEDrine SULFATE INJ 50 MG/ML AMP IV PRN; +FENTANYL CITRATE INJ 50 MCG/1 ML 2 ML VIAL IV PRN; -HYDR-3126 PO; +LACTATED RINGER'S 1000ML 1,000 ML IV SCH; -LISI-461 PO; +LISI5TAB PO; -VITAMIN B12 SC; -VTMD PO
[2018-02-12] MEDS ORDERED: NYSTCRE11 (09:34)
[2018-02-12] MEDS ORDERED: SODICRE2 (09:34)
[2018-02-12] MEDS ORDERED: nystatin powder (09:34)
[2018-02-12] MEDS ORDERED: ALBU18002 (09:34)
[2018-02-12 09:39] VITALS: BP 140/89; PULSE 96; TEMP 37.1; O2SAT 98; Ht 157.5 cm; Wt 100.0 kg
[2018-02-12] MEDS ORDERED: FENTANYL CITRATE INJ 50 MCG/1 ML 2 ML VIAL ONE (09:54)
[2018-02-12] MEDS ORDERED: MIDAZOLAM HCL 1 MG/ML 2ML VIAL ONE (09:54)
[2018-02-12] MEDS ORDERED: KETAMINE HCL INJ 50 MG/ML 10 ML VIAL ONE (09:55)
[2018-02-12] MEDS ORDERED: SODIUM CHLORIDE 0.9% 500ML 500 ML IV ONE (10:13)
--- NOTE | 2018-02-12 10:13 | Endo History and Physical ---
History & Physical Date of Service: February 12, 2018. 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 ON plavix, so intervention will not be performed today Past Surgical History Hx Cardiac Surgery: No Hx Internal Defibrillator: No Hx Pacemaker: No Hx Abdominal Surgery: Yes (TUBAL LIGATION) Hx Post-Op Nausea and Vomiting: No Hx Cancer Surgery: No Hx Thoracic Surgery: No Hx Orthopedic: No Hx Urinary Tract Surgery: No Social History Smoking Status: Never Smoker Hx Substance Use: Yes (SEE MED REC) Hx Alcohol Use: No Allergies Coded Allergies: Aripiprazole (Verified Allergy, Unknown, HALLUCINATIONS, 02/04/18) [place] Blue FCF (Verified Allergy, Unknown, "hallucinations", 02/12/18) Doxepin (Verified Allergy, Unknown, "hallucinations", 02/12/18) Eletriptan (Verified Allergy, Unknown, HALLUCINATIONS, 02/04/18) Hydroxyzine (Verified Allergy, Unknown, UNK, 02/04/18) Lamotrigine (Verified Allergy, Unknown, UNK, 02/04/18) Prochlorperazine (Verified Allergy, Unknown, UNK, 02/04/18) Quetiapine (Verified Allergy, Unknown, UNK, 02/04/18) Tomato (Verified Allergy, Unknown, ITCHY AND RED, 02/04/18) Trazodone (Verified Allergy, Unknown, IRRITABLE AND FIGIDITY, 02/04/18) Vortioxetine (Verified Allergy, Unknown, UNK, 02/04/18) Zolpidem (Verified Allergy, Unknown, SOB & HEART WAS "WORKING TOO HARD" & NAUSEA, 02/04/18) Vilazodone (Verified Adverse Reaction, Intermediate, VIIBRYD-- HALLUCINATIONS, 02/04/18) Rizatriptan (Verified Adverse Reaction, Unknown, NAUSEA, 02/04/18) Current Medications Reported Home Medications Medications Dose Route/Sig Max Daily Dose Days Date Category Dose Instructions Denta 5000 Plus (Sodium Fluoride (Dental)) 1.1 % Cre 1 Appl TID 02/12/18 Reported [nystatin powder] 1 Appln UD 02/12/18 Reported Proair Respiclick (Albuterol Sulfate) 108 Mcg/Act Aer 2 Puffs Q4 PRN 02/12/18 Reported Mycogen || (Nystatin/Triamcinolone Acetonide) Cr 1 Appln UD 02/12/18 Reported Lunesta (Eszopiclone) 3 Mg Tab 3 Mg PO HS 02/04/18 Reported Vitamin D 74540 Unit (Ergocalciferol) 50,000 Unit Cap 50,000 Unit PO 2XWK 02/04/18 Reported THURSDAY & THURSDAY Vitamin B12 (Cyanocobalamin) 1,000 Mcg Tab 1,000 Mcg PO QAM 02/04/18 Reported Buspirone Hcl 7.5 Mg Tab 7.5 Mg PO BID PRN 02/04/18 Reported Prinivil (Lisinopril) 5 Mg Tab 5 Mg PO QAM 02/04/18 Reported Phenergan (Promethazine HCl) 25 Mg Tab 25 Mg PO Q6H PRN 01/27/17 Reported Plavix (Clopidogrel Bisulfate) 75 Mg Tab 75 Mg PO DAILY 01/27/17 Reported Verapamil HCl ER (Verapamil HCl) 180 Mg Tabcr 180 Mg PO HS 01/27/17 Reported Toprol Xl (Metoprolol Succinate) 50 Mg Tabcr 50 Mg PO HS 01/27/17 Reported Mobic (Meloxicam) 15 Mg Tab 15 Mg PO QAM 01/27/17 Reported Linzess (Linaclotide) 145 Mcg Cap 145 Mcg PO BID 01/27/17 Reported Crestor (Rosuvastatin Calcium) 20 Mg Tab 20 Mg PO HS 01/27/17 Reported Hydrochlorothiazide 25 Mg Tab 25 Mg PO QAM 11/04/16 Reported Levothyroxine Sodium 100 Mcg Tab 100 Mcg PO QAM 10/20/16 Reported Wellbutrin Sr (Bupropion HCl) 150 Mg Ertab 150 Mg PO QAM 04/08/16 Reported Wellbutrin Sr (Bupropion HCl) 100 Mg Ertab 300 Tab PO QAM 04/08/16 Reported Effexor Extended Rel (Venlafaxine Hcl) 150 Mg Cap 150 Mg PO HS 04/08/16 Reported Effexor (Venlafaxine Hcl) 37.5 Mg Tab 37.5 Mg PO HS 04/08/16 Reported Vesicare (Solifenacin) 10 Mg Tab 10 Mg PO HS 04/08/16 Reported Protonix (Pantoprazole) 40 Mg Tab 40 Mg PO QAM 04/08/16 Reported Zofran (Ondansetron HCl) 4 Mg Tab 4 Mg PO Q8H PRN 04/08/16 Reported Aleve (Naproxen) 220 Mg Tab 220 Mg PO DIRECTED PRN 03/13/16 Reported Docusate Sodium 100 Mg Tab 200 Mg PO BID 03/13/16 Reported Robaxin (Methocarbamol) 500 Mg Tab 500 Mg PO TID 03/13/16 Reported Zantac (Ranitidine HCl) 300 Mg Tab 300 Mg PO HS 08/27/15 Reported Meclizine Hcl 25 Mg Tab 25 Mg PO TID PRN 08/27/15 Reported Copaxone (Glatiramer Acetate) 20 Mg/1 Ml Inj 20 Mg SQ QAM 08/27/15 Reported Fioricet (Acetaminophen/Butalbital/Caffeine) 1 Ea Tab 1-2 Tab PO BID PRN 08/25/13 Reported TAKE 1 OR 2 TABLETS BID PRN HEADACHE, NO MORE THAN 2 DAYS PER WEEK. Vital Signs Weight (Kilograms): 100.00 Height (Feet): 5 Height (Inches): 2 Date Time Temp Pulse Resp B/P (MAP) Pulse Ox O2 Delivery O2 Flow Rate FiO2 02/12/18 09:39 37.1 96 20 140/89 (106) 98 Room Air Physical Exam General Appearance: WD/WN, no apparent distress Respiratory/Chest: Respiratory effort: no dyspnea Auscultation: breath sounds normal, CTA except as noted Cardiovascular: Apical Impulse: not displaced Heart Auscultation: RRR, normal S1 Abdomen: Bowel Sounds: normal Inspection & Palpation: soft, non-distended Assessment and Plan Plan for EUS for evaluation of distal esopahgus and mediastinum
[2018-02-12] MEDS ORDERED: ONDANSETRON INJ 2 MG/ML 2 ML VIAL ONE (11:04)
--- NOTE | 2018-02-12 11:04 | GI REPORT ---
Patient Name: Lucas Diaz Procedure Date: 02/12/2018 10:58 AM Date of : 1970 Admit Type: Outpatient Age: 47 Gender: Female Attending MD: Rocky Wu MD Procedure: Upper GI endoscopy Providers: Rocky Wu MD Referring MD: Maura Albarran Indications: Dysphagia Medicines: General Anesthesia Complications: No immediate complications. Estimated blood loss: None. Estimated Blood Loss: Estimated blood loss: none. Procedure: Pre-Anesthesia Assessment: - Pre-Anesthesia Assessment: - Prior to the procedure, a History and Physical was performed, and patient medications, allergies and sensitivities were reviewed. The patient's tolerance of previous anesthesia was reviewed. Please see [employer] for complete details. - The risks and benefits of the procedure and the sedation options and risks were discussed with the patient. All questions were answered and informed consent was obtained. - Patient identification and proposed procedure were verified prior to the procedure by the physician and the nurse. The procedure was verified in the pre-procedure area in the procedure room. After obtaining informed consent, the endoscope was passed carefully and meticuously under direct vision and only advanced when the lumen was clearly identified, C02 insuflation was utilized throughout the entirity of the procedure. Throughout the procedure, the patient's blood pressure, pulse, and oxygen saturations were monitored continuously. After obtaining informed consent, the endoscope was passed under direct vision. Throughout the procedure, the patient's blood pressure, pulse, and oxygen saturations were monitored continuously. The scope was introduced through the mouth, and advanced to the second part of duodenum. The upper GI endoscopy was accomplished without difficulty. The patient tolerated the procedure well. Findings: A small hiatus hernia was present. The entire examined stomach was normal. The examined duodenum was normal. Impression: - Small hiatus hernia. - Normal stomach. - Normal examined duodenum. - No specimens collected. Recommendation: - Discharge patient to home (with escort). - Return to referring physician as previously scheduled. - Perform an upper endoscopic ultrasound (UEUS) today. Rocky Wu MD 02/12/2018 11:03:51 AM This report has been signed electronically. Note Initiated On: 02/12/2018 10:58 AM Number of Addenda: 0 I attest to the content of the Intraoperative Record and orders documented therein, exceptions below {[id number]}
[2018-02-12] MEDS ORDERED: PROPOFOL IV EMULSION 10 MG/ML 20 ML VIAL ONE ×2 (11:18→11:29)
--- NOTE | 2018-02-12 11:37 | GI REPORT ---
Patient Name: Lucas Diaz Procedure Date: 02/12/2018 11:04 AM Date of : 1970 Admit Type: Outpatient Age: 47 Gender: Female Attending MD: Rocky Wu MD Procedure: Upper EUS Providers: Rocky Wu MD Referring MD: Maura Albarran Indications: Dysphagia Medicines: General Anesthesia Complications: No immediate complications. Estimated blood loss: None. Estimated Blood Loss: Estimated blood loss: none. Procedure: Pre-Anesthesia Assessment: - Pre-Anesthesia Assessment: - Prior to the procedure, a History and Physical was performed, and patient medications, allergies and sensitivities were reviewed. The patient's tolerance of previous anesthesia was reviewed. Please see [employer] for complete details. - The risks and benefits of the procedure and the sedation options and risks were discussed with the patient. All questions were answered and informed consent was obtained. - Patient identification and proposed procedure were verified prior to the procedure by the physician and the nurse. The procedure was verified in the pre-procedure area in the procedure room. After obtaining informed consent, the endoscope was passed carefully and meticuously under direct vision and only advanced when the lumen was clearly identified, C02 insuflation was utilized throughout the entirity of the procedure. Throughout the procedure, the patient's blood pressure, pulse, and oxygen saturations were monitored continuously. After obtaining informed consent, the endoscope was passed under direct vision. Throughout the procedure, the patient's blood pressure, pulse, and oxygen saturations were monitored continuously. The upper EUS was accomplished without difficulty. The patient tolerated the procedure well. The scope was introduced through the mouth, and advanced to the second part of duodenum. Findings: Endosonographic Finding : There was no sign of significant endosonographic abnormality in the esophagus. No pathologic lymphadenopathy, no masses and no wall thickening were identified. No lymphadenopathy seen. There was no sign of significant endosonographic abnormality in the entire pancreas. No masses, mild dilation of PD in head to 4 mm but no masses. There was no sign of significant endosonographic abnormality in the left lobe of the liver. There was no sign of significant endosonographic abnormality in the common bile duct. There was no sign of significant endosonographic abnormality in the gallbladder body. Impression: - There was no sign of significant pathology in the esophagus. - There was no sign of significant pathology in the entire pancreas. - There was no evidence of significant pathology in the left lobe of the liver. - There was no sign of significant pathology in the common bile duct. - There was no sign of significant pathology in the gallbladder body. - No specimens collected. Recommendation: - Discharge patient to home (with escort). - Return to referring physician as previously scheduled. - Should have CT of the chest as well Rocky Wu MD 02/12/2018 11:36:35 AM This report has been signed electronically. Note Initiated On: 02/12/2018 11:04 AM Number of Addenda: 0 I attest to the content of the Intraoperative Record and orders documented therein, exceptions below {[id number]}
--- NOTE | 2018-02-12 11:55 | Discharge Instructions ---
Endoscopy Patient Instructions Date / Procedure(s) Performed February 12, 2018. EGD, Other (EUS) Allergy Information Coded Allergies: Aripiprazole (Verified Allergy, Unknown, HALLUCINATIONS, 02/04/18) [place] Blue FCF (Verified Allergy, Unknown, "hallucinations", 02/12/18) Doxepin (Verified Allergy, Unknown, "hallucinations", 02/12/18) Eletriptan (Verified Allergy, Unknown, HALLUCINATIONS, 02/04/18) Hydroxyzine (Verified Allergy, Unknown, UNK, 02/04/18) Lamotrigine (Verified Allergy, Unknown, UNK, 02/04/18) Prochlorperazine (Verified Allergy, Unknown, UNK, 02/04/18) Quetiapine (Verified Allergy, Unknown, UNK, 02/04/18) Tomato (Verified Allergy, Unknown, ITCHY AND RED, 02/04/18) Trazodone (Verified Allergy, Unknown, IRRITABLE AND FIGIDITY, 02/04/18) Vortioxetine (Verified Allergy, Unknown, UNK, 02/04/18) Zolpidem (Verified Allergy, Unknown, SOB & HEART WAS "WORKING TOO HARD" & NAUSEA, 02/04/18) Vilazodone (Verified Adverse Reaction, Intermediate, VIIBRYD-- HALLUCINATIONS, 02/04/18) Rizatriptan (Verified Adverse Reaction, Unknown, NAUSEA, 02/04/18) Discharge Date / Findings February 12, 2018. Normal esophagus, gallbladder Provider Instructions Activity Restrictions - No exercising or heavy lifting for 24 hours. - Do not drink alcohol the day of the procedure. - Do not drive a car or operate machinery until the day after the procedure. - Do not make any important decisions or sign important papers in 24 hours after the procedure. Following Day: - Return to full activity which may include returning to work/school. Diet Start your diet with liquids and light foods (jello, soup, juice, toast). Then eat your usual diet if not nauseated. Treatment For Common After Affects For mild abdominal pain, bloating, or excessive gas: - Rest - Eat lightly - Lie on right side Follow-Up Information Follow-up with as scheduled Anesthesia Information What You Should Know You have had a procedure that required some medicine to reduce anxiety and discomfort. This treatment is called moderate sedation. After receiving the treatment, you may be sleepy, but you will be able to breathe on your own. The effects of the treatment may last for several hours. Follow these instructions along with Activity/Diet recommendations noted above: * Do NOT do anything where dizziness or clumsiness would be dangerous. * Rest quietly at home today, then you can be up and about tomorrow. * Have a responsible person stay with you the rest of today. * You may have had an I.V. today. If so, you may take the dressing off later today. Recommendations Call your doctor if: * Trouble breathing * Continuous vomiting for more than 24 hours * Temperature above 101 degrees * Severe abdominal pain or bloating * Pain not relieved by pain medicine ordered * There is increased drainage or redness from any incision * A large amount of rectal bleeding greater than 2-3 tablespoons. (If you had a polyp/s removed or have hemorrhoids, a small amount of blood - from the rectum is to be expected.) * You have any unanswered questions or concerns. IN THE EVENT OF A SERIOUS EMERGENCY, GO TO THE NEAREST EMERGENCY ROOM Your discharge instructions were prepared by provider Rocky Wu. Patient Instructions Signature Page Lucas Diaz Patient (or Guardian) Signature/Date: I have read and understand the instructions given to me by my caregivers. Caregiver/RN/Doctor Signature/Date: The above-named patient and/or guardian has received patient instructions on this date. + Original Patient Signature Page (only) stays with chart. Please make copy for patient.
[2018-02-12 12:05] VITALS: PULSE 84
[2018-02-12 12:20] VITALS: BP 147/77; PULSE 83; TEMP 36.9; O2SAT 96
--- NOTE | 2018-02-12 12:25 | Anesthesiology Progress Note ---
Anesthesia Post Op Note Date & Time February 12, 2018 at 12:24 Vital Signs Pain Intensity: 0 Vital Signs Past 12 Hours Date Time Temp Pulse Resp B/P (MAP) Pulse Ox O2 Delivery O2 Flow Rate FiO2 02/12/18 12:05 36.4 84 16 134/73 96 Room Air 02/12/18 11:55 36.4 83 16 109/80 96 Room Air 02/12/18 11:45 83 16 127/87 100 Room Air 02/12/18 11:36 36.5 85 16 124/64 100 Oxymask 5 02/12/18 09:39 37.1 96 20 140/89 (106) 98 Room Air Notes Mental Status: alert / awake / arousable, participated in evaluation Pt Amnestic to Procedure: Yes Nausea / Vomiting: adequately controlled Pain: adequately controlled Airway Patency, RR, SpO2: stable & adequate BP & HR: stable & adequate Hydration State: stable & adequate Anesthetic Complications: no major complications apparent
[2018-02-12 12:36] VITALS: BP 147/77; PULSE 83; TEMP 36.9; O2SAT 96
[2018-02-12 12:50] VITALS: BP 132/68; O2SAT 99
== END 2018-02-12 13:24 | disposition home or self-care (01) ==
LOC: C.ACU 08:23
PROVIDERS: ATTEND Internal Medicine
DX: R13.10 Dysphagia, unspecified (principal); K44.9 Diaphragmatic hernia without obstruction or gangrene; I10 Essential (primary) hypertension; F41.9 Anxiety disorder, unspecified; G47.33 Obstructive sleep apnea (adult) (pediatric); Z79.02 Long term (current) use of antithrombotics/antiplatelets; Z88.8 Allergy status to other drugs, medicaments and biological substances; Z91.018 Allergy to other foods; Z79.899 Other long term (current) drug therapy; Z86.73 Personal history of transient ischemic attack (TIA), and cerebral infarction without residual deficits